=== PATIENT | male | born 1965 | race Caucasian/White ===

== ENCOUNTER 2018-12-29 22:27 | Emergency (ER) | payer OTHER ==
[~2018-12-29] VITALS: Ht 157.5 cm; Wt 74.8 kg
[2018-12-29 22:32] VITALS: BP 123/75
--- NOTE | 2018-12-29 22:35 | NUR ---
53Y MALE, PRESENTED TO ED C/O R ELBOW PAIN 09/06 NOW [id number]. PT NOT SO SURE IF INJURED/HIT ELBOW. TOOK TYLENOT AT 1500 WITH SOME RELIEF OF PAIN. PT ABLE TO BEND R ELBOW, NOTED SWELLING SOFT WITH MILD TENDERNESS TO TOUCH. EDMD MADE AWARE, BED LOCKED IN LOWEST POSITION, SIDE RAIL UPX1. WILL CONTINUE TO MONITOR CLOSELY. NKA HTN, GERD
[2018-12-30] MEDS ORDERED: LIDOCAINE 1% 500 MG/50 ML VIAL INJ SCH (00:05)
--- NOTE | 2018-12-30 00:10 | NUR ---
DR. CONRAD PERFORMING ARTHORCENTESIS ON R ELBOW AT THIS TIME.
[2018-12-30] MEDS ORDERED: LIDOCAINE MPF 1% - 5 mL VIAL 5 ML ONE (00:17)
[2018-12-30 00:25] VITALS: BP 128/76
--- NOTE | 2018-12-30 00:25 | NUR ---
Patient discharged with v/s stable. Written and verbal after care instructions given and explained. Patient alert, oriented and verbalized understanding of instructions. Ambulatory with steady gait. All questions addressed prior to discharge. ID band removed. Patient advised to follow up with PMD. Rx of IBUPROFEN 600MG given. Patient educated on indication of medication including possible reaction and side effects. Opportunity to ask questions provided and answered.
== END 2018-12-30 00:25 | disposition home or self-care (01) ==
LOC: MED 22:27
DX: M25.421 Effusion, right elbow (principal); K21.9 Gastro-esophageal reflux disease without esophagitis; I10 Essential (primary) hypertension
CPT/HCPCS: 20605; 36415; 73080; 84550; 99284; J2001; Q0092